=== PATIENT | female | born 1930 | race Caucasian/White ===

== ENCOUNTER 2017-10-30 15:30 | Observation (INO) ==
[2017-10-30] MEDS ORDERED: IOPAMIDOL 100 ML BOTTLE IV ONE (15:31)
[2017-10-30] MEDS ORDERED: LACTATED RINGERS 1,000 ML IV ONE ×2 (15:49→19:01)
--- NOTE | 2017-10-30 15:49 | Emergency Department Note ---
General Adult HPI - General Chief complaint: Dizziness Stated complaint: dizziness Time Seen by Provider: 10/30/17 15:45 Source: patient Mode of arrival: ambulatory Limitations: no limitations - History of Present Illness HPI Narrative: This patient has felt a little lightheaded today with slight vertigo at times. Said she almost collapsed getting into the car. Describes little weakness in her legs. She has had a slight cough. Denies nausea vomiting no chest pain abdominal pain. No focal neurologic weakness numbness or tingling. No visual changes no speech changes. No headache. - Related Data Home Medications Medication Instructions Recorded Confirmed Losartan [Cozaar] 12.5 mg PO BID 10/06/15 03/06/17 Previous Rx's Medication Instructions Recorded Rivaroxaban [Xarelto] 15 mg PO DAILY tablet 03/02/16 Allergies Allergy/AdvReac Type Severity Reaction Status Date / Time lisinopril Allergy Intermediate Drowsy Verified 03/06/17 11:55 loratadine Allergy Unknown Unknown Verified 03/06/17 11:55 metoprolol Allergy Unknown Unknown Verified 03/06/17 11:55 Nortriptyline Allergy Unknown Unknown Verified 03/06/17 11:55 pentoxifylline Allergy Unknown Unknown Verified 03/06/17 11:55 aspartame AdvReac Intermediate Irritable Verified 03/06/17 11:55 [From Nutrasweet Aspartame] iodine AdvReac Intermediate Blister Verified 03/06/17 11:55 latex AdvReac Intermediate Unknown Verified 03/06/17 11:55 rhubarb AdvReac Intermediate Hives Verified 03/06/17 11:55 [place] AdvReac Intermediate Hives Verified 03/06/17 11:55 venom-honey bee AdvReac Intermediate Swelling Verified 03/06/17 11:55 adhesive tape AdvReac Mild Blister Verified 03/06/17 11:55 novacaine Allergy Mild Unknown Uncoded 02/28/16 02:26 Review of Systems All systems ED: reviewed and negative except as stated. Past Medical History - Past Medical History PMFSH Narrative: Medical History Muscle spasm of back (Acute) Tenderness of left calf (Acute) Lumbar paraspinal muscle spasm (Acute) Bilateral sacroiliitis (Acute) Arrhythmia (Acute) Sinus bradycardia-tachycardia syndrome (Acute) Cellulitis (Acute) Knee sprain (Acute) Wrist sprain (Acute) Weakness (Acute) Urinary tract infection (Ruled-out) Medical history: Reports: DVT (LLE), hypertension. 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: non-contributory Surgical history ED: Reports: appendectomy, hip replacement, orthopedic, other ( Kyphoplasty T11, knee, foot), other (tonsillectomy) - Social History smoking status: Never smoker Alcohol use: Reports: None Drug use: Reports: none Physical Exam Limitations: no limitations General appearance: alert Head: atraumatic Eye: Present: normal appearance ENT: mucous membranes dry Neck: Present: normal inspection Chest: Present: normal inspection Respiratory: Present: normal lung sounds bilaterally Cardiovascular: Present: regular rate, normal rhythm, normal heart sounds Abdominal: Present: soft. Absent: distention, tenderness Neurological: Present: alert Psychiatric: Present: normal affect, normal mood Skin: Present: warm, dry, intact Course Vital Signs Pulse Rate 65 10/30/17 16:22 Respiratory Rate 16 10/30/17 16:22 Blood Pressure 146/79 10/30/17 16:22 Pulse Oximetry (%) 99 10/30/17 16:22 Pulse Rate 74 10/30/17 22:21 Respiratory Rate 19 10/30/17 22:21 Blood Pressure 133/79 10/30/17 22:16 Pulse Oximetry (%) 94 10/30/17 22:21 Medical Decision Making - [facility] Narrative Medical decision making narrative: Lab work was unremarkable and CTA of head and neck was negative. She will be admitted to the hospital for vertigo and instability. - Lab Data Lab results reviewed: Yes I reviewed the patient's lab results. Result diagrams: 10/30/17 15:45 10/30/17 15:45 Lab Results 10/30/17 10/30/17 10/30/17 Range/Units 15:42 15:45 15:45 WBC 4.7 (4.5-11.0) K/mcL RBC 3.92 L (4.00-5.20) M/mcL Hgb 11.5 L (12.0-15.0) g/dL Hct 34.0 L (36.0-48.0) % MCV 86.7 (80.0-100.0) fL MCH 29.3 (26.0-34.0) pg MCHC 33.9 (31.0-36.0) g/dL RDW 14.8 H (11.5-14.5) % Plt Count 216 (140-440) K/mcL MPV 9.0 (7.4-10.4) fL Gran % 45.7 (38.0-78.0) % Lymph % (Auto) 44.3 (15.5-49.0) % [place] % (Auto) 5.9 (1.0-12.0) % Eos % (Auto) 3.7 (0.0-7.0) % Baso % (Auto) 0.4 (0.0-2.0) % Gran # 2.2 (1.8-8.0) K/mcL Lymph # (Auto) 2.1 (1.5-4.8) K/mcL [place] # (Auto) 0.3 (0.1-0.9) K/mcL Eos # (Auto) 0.2 (0.0-0.7) K/mcL Baso # (Auto) 0 (0.0-0.3) K/mcL Sodium 137 (133-145) mmol/L Potassium 4.4 (3.3-5.1) mmol/L Chloride 99 (96-108) mmol/L Carbon Dioxide 22 (22-30) mmol/L Anion Gap 16.0 (8-16) BUN 14 (8-23) mg/dl Creatinine 1.2 H (0.6-1.1) mg/dl GFR Calculation 41 Glucose 93 (70-105) mg/dL Calcium 9.1 (8.6-10.4) mg/dl Total Bilirubin 0.3 (0.0-1.0) mg/dL AST 26 (0-37) U/l ALT 13 (0-40) U/l Alkaline Phosphatase 54 (39-117) U/L Troponin T < 0.01 (0-0.03) ng/ml Total Protein 6.6 (5.9-8.4) gm/dL Albumin 4.5 (3.2-5.2) gm/dL Globulin 2.1 L (2.2-3.7) gm/dL Albumin/Globulin Ratio 2.1 (1.0-2.3) Urine Color Urine Appearance Urine pH (5.0-9.0) Ur Specific [place] (1.000-1.035) Urine Protein (NEG) mg/dL Urine Glucose (UA) (NEG) mg/dL Urine Ketones (NEG) mg/dL Urine Occult Blood (<0.03) mg/dL Urine Nitrate (NEG) Urine Bilirubin (NEG) mg/dL Urine Urobilinogen (NEG) mg/dL Ur Leukocyte Esterase (NEG) /uL Ur Culture Indicated? 10/30/17 Range/Units 18:09 WBC (4.5-11.0) K/mcL RBC (4.00-5.20) M/mcL Hgb (12.0-15.0) g/dL Hct (36.0-48.0) % MCV (80.0-100.0) fL MCH (26.0-34.0) pg MCHC (31.0-36.0) g/dL RDW (11.5-14.5) % Plt Count (140-440) K/mcL MPV (7.4-10.4) fL Gran % (38.0-78.0) % Lymph % (Auto) (15.5-49.0) % [place] % (Auto) (1.0-12.0) % Eos % (Auto) (0.0-7.0) % Baso % (Auto) (0.0-2.0) % Gran # (1.8-8.0) K/mcL Lymph # (Auto) (1.5-4.8) K/mcL [place] # (Auto) (0.1-0.9) K/mcL Eos # (Auto) (0.0-0.7) K/mcL Baso # (Auto) (0.0-0.3) K/mcL Sodium (133-145) mmol/L Potassium (3.3-5.1) mmol/L Chloride (96-108) mmol/L Carbon Dioxide (22-30) mmol/L Anion Gap (8-16) BUN (8-23) mg/dl Creatinine (0.6-1.1) mg/dl GFR Calculation Glucose (70-105) mg/dL Calcium (8.6-10.4) mg/dl Total Bilirubin (0.0-1.0) mg/dL AST (0-37) U/l ALT (0-40) U/l Alkaline Phosphatase (39-117) U/L Troponin T (0-0.03) ng/ml Total Protein (5.9-8.4) gm/dL Albumin (3.2-5.2) gm/dL Globulin (2.2-3.7) gm/dL Albumin/Globulin Ratio (1.0-2.3) Urine Color Straw Urine Appearance Clear Urine pH 8.0 (5.0-9.0) Ur Specific [place] 1.005 (1.000-1.035) Urine Protein Neg (NEG) mg/dL Urine Glucose (UA) Negative (NEG) mg/dL Urine Ketones Neg (NEG) mg/dL Urine Occult Blood Neg (<0.03) mg/dL Urine Nitrate Neg (NEG) Urine Bilirubin Neg (NEG) mg/dL Urine Urobilinogen Neg (NEG) mg/dL Ur Leukocyte Esterase Neg (NEG) /uL Ur Culture Indicated? No - Radiology Data Radiology results reviewed: Yes I reviewed the patient's radiology results. Disposition Pt seen by COAL PIPELINE OPERATOR/PA only: No Clinical Impression: Acute vestibular neuronitis Disposition: Xfer As Outpt/Obs ([facility]) Condition: Fair Referrals: Diego Escobedo DO [Primary Care Provider] - Time of Disposition: 22:28
[2017-10-30 16:22] LABS: Basophils # (Auto) 0 K/mcL (0.0-0.3); Basophils % (Auto) 0.4 % (0.0-2.0); Eosinophils # (Auto) 0.2 K/mcL (0.0-0.7); Eosinophils % (Auto) 3.7 % (0.0-7.0); Granulocytes % (Auto) 45.7 % (38.0-78.0); Lymphocytes # (Auto) 2.1 K/mcL (1.5-4.8); Lymphocytes % (Auto) 44.3 % (15.5-49.0); Mean Cell Volume 86.7 fL (80.0-100.0); Mean Corpuscular HGB Conc 33.9 g/dL (31.0-36.0); Mean Corpuscular Hemoglobin 29.3 pg (26.0-34.0); Monocytes # (Auto) 0.3 K/mcL (0.1-0.9); Monocytes % (Auto) 5.9 % (1.0-12.0); Platelet Count 216 K/mcL (140-440); RBC 3.92 M/mcL (4.00-5.20); Red Cell Distribution Width 14.8 % (11.5-14.5)
[2017-10-30 16:37] LABS: ALT/SGPT 13 U/l (0-40); Albumin 4.5 gm/dL (3.2-5.2); Albumin/Globulin Ratio 2.1 (1.0-2.3); Alkaline Phosphatase 54 U/L (39-117); Blood Urea Nitrogen 14 mg/dl (8-23)
[2017-10-30 18:57] LABS: Appearance,Urine CLEAR; Bilirubin,Urine NEG (NEG); Color,Urine STRAW; Glucose,Urine (UA) NEGATIVE (NEG); Leukocyte Esterase,Urine NEG /uL (NEG); Protein,Urine NEG (NEG); Specific Gravity,Urine 1.005 (1.000-1.035); Urine Blood NEG mg/dL (<0.03); Urobilinogen,Urine NEG (NEG)
[2017-10-30] MEDS ORDERED: MECLIZINE 25 MG TABLET PO ONE (19:01)
--- NOTE | 2017-10-31 00:03 | Internal Med History&Physical ---
Medical - H&P: HPI Patient information: Note initiated : 10/30/17 at 11:56 pm Service Date, if different from initiated Date: [] Patient: Noreen Obando 86 y/o F admitted on for dizziness. Chief Complaint: [] History of present illness: Ms. Obando is a 86 year old Female with h/o pacemaker, presents to the ER with complaints of dizziness for the last few days She notes that over the last few days, she has been having spells of dizziness, she would be doing something, like taking out the thrash, or just working in the house, when she would feel dizzy, weak, and then likely as if the room is twirling around her. This sensation would last for a while and then it would pass away, she noted that her eyes would be black( vision turning black during this time). She denies any diplopia, headaches, changes in vision, scotoma, no hearing loss (acute), no fullness in ears, no tinnitus, no palpitations around these spells, she does admit that she is weak during these episodes and feels as if her legs would give away, she usually sits in a chair and waits for the sensation to pass away. The dizzy spells have been progressively getting worse, and today she had a bad one therefore came to the ER for further evaluation. In the ER she was noted to be afebrile, exam was non focal, CT Head, CTA neck and CTA head was negative, EKG was paced rhythm. Chest X ray was not done initially, and patient was presented for vertigo. Chest x ray done later showed oswald intersitial, infiltrates, likely CHF Patient does admit to having cough which has been getting worse over last month or so, no sputum production, no fever no chills, no sick contacts, no GI or symptoms, no skin or joint complaints, lesia any acute anxiety or depression. She will be admitted to the hospital for further management. All systems: reviewed and no additional remarkable complaints except as stated ( as per HPI) Medical - H&P: PMH Medical history: Medical History Muscle spasm of back (Acute) Tenderness of left calf (Acute) Lumbar paraspinal muscle spasm (Acute) Bilateral sacroiliitis (Acute) Arrhythmia (Acute) Sinus bradycardia-tachycardia syndrome (Acute) Cellulitis (Acute) Knee sprain (Acute) Wrist sprain (Acute) Weakness (Acute) Urinary tract infection (Ruled-out) Family history: reviewed and not pertinent Medical - H&P: Meds Home Medications Medication Instructions Recorded Confirmed Type Losartan [Cozaar] 12.5 mg PO BID 10/06/15 03/06/17 History Rivaroxaban [Xarelto] 15 mg PO DAILY tablet 03/02/16 03/06/17 Rx Allergies Allergy/AdvReac Type Severity Reaction Status Date / Time lisinopril Allergy Intermediate Drowsy Verified 03/06/17 11:55 loratadine Allergy Unknown Unknown Verified 03/06/17 11:55 metoprolol Allergy Unknown Unknown Verified 03/06/17 11:55 Nortriptyline Allergy Unknown Unknown Verified 03/06/17 11:55 pentoxifylline Allergy Unknown Unknown Verified 03/06/17 11:55 aspartame AdvReac Intermediate Irritable Verified 03/06/17 11:55 [From Nutrasweet Aspartame] iodine AdvReac Intermediate Blister Verified 03/06/17 11:55 latex AdvReac Intermediate Unknown Verified 03/06/17 11:55 rhubarb AdvReac Intermediate Hives Verified 03/06/17 11:55 [place] AdvReac Intermediate Hives Verified 03/06/17 11:55 venom-honey bee AdvReac Intermediate Swelling Verified 03/06/17 11:55 adhesive tape AdvReac Mild Blister Verified 03/06/17 11:55 novacaine Allergy Mild Unknown Uncoded 02/28/16 02:26 Medical - H&P: Exam - Constitutional Vitals: Pulse Resp BP Pulse Ox 74 19 133/79 94 10/30/17 22:21 10/30/17 22:21 10/30/17 22:16 10/30/17 22:21 Exam: GENERAL: The patient is a well-developed, well-nourished in no apparent distress. Is alert and oriented x3. VITAL SIGNS: Reviewed and as noted elsewhere. HEENT: Head is normocephalic and atraumatic. Extraocular muscles are intact. Pupils are equal, round, and reactive to light. Nares appeared normal. Mouth appears any without lesions. Mucous membranes are moist. NECK: Normal to inspection, Supple, No lymphadenopathy or thyromegaly. LUNGS: Air entry equal on both sides, no wheezing, oswald insipiratory crackles present lower 1/3 both lungs HEART: Regular rate and rhythm normal, S1 and S2 heard, no Gallop, S3 or Rub Noted, No Gross murmur heard. ABDOMEN: Soft, nontender, and nondistended. Positive bowel sounds. No hepatosplenomegaly was noted. EXTREMITIES: No cyanosis, clubbing, rash, lesions, edema + present NEUROLOGIC: Cranial nerves II through XII are grossly intact. Motor and Sensory System Grossly Intact, no cerebellar signs noted. no nystagmus, PSYCHIATRIC: Normal affect, Normal Mood. Appropriate Behavior. SKIN: No ulceration or wounds noted, No jaundice, No rash noted. Medical - H&P: Reslt - Labs CBC & Chem 7: 10/30/17 15:45 10/30/17 15:45 Labs: Short CBC 10/30/17 Range/Units 15:45 WBC 4.7 (4.5-11.0) K/mcL Hgb 11.5 L (12.0-15.0) g/dL Hct 34.0 L (36.0-48.0) % Plt Count 216 (140-440) K/mcL BMP 10/30/17 15:45 Sodium 137 Potassium 4.4 Chloride 99 Carbon Dioxide 22 BUN 14 Creatinine 1.2 H Glucose 93 Calcium 9.1 Cardiac Enzymes 10/30/17 Range/Units 15:42 Troponin T < 0.01 (0-0.03) ng/ml Liver Function 10/30/17 Range/Units 15:45 Total Bilirubin 0.3 (0.0-1.0) mg/dL AST 26 (0-37) U/l ALT 13 (0-40) U/l Alkaline Phosphatase 54 (39-117) U/L Albumin 4.5 (3.2-5.2) gm/dL Urine 10/30/17 Range/Units 18:09 Urine Color Straw Urine Appearance Clear Urine pH 8.0 (5.0-9.0) Ur Specific [place] 1.005 (1.000-1.035) Urine Protein Neg (NEG) mg/dL Urine Glucose (UA) Negative (NEG) mg/dL Medical - H&P: A/P - Narrative A/P Narrative: A/P Dizziness/ Vertigo: Etiology? patient history and labs are not clearly indicating any particular pathology, most of the time patient spells are related to change in posture, ortho static in ER were negative, but did provoke a dizzy reponse. The patient denies any specific position which would trigger an episode, and feels dizzy when her head is moved in either direction. Imaging studies neg, MRI not done/ due to pacemaker status. plan to start on meclizine scheduled for now. She has nausea only today, but no vomiting. prn zofran. 0.5mg Ativan tonight to help her sleep well. Pt prob list does have h/o BPPV listed, for some reason patient noted this has not happened to her before. Congestive Heart failuire: CXR Suggestive of same, patient had received 2 L fluid in the ER, oxygen sat normal, not sure if fluid in the ER is responsible for CXR findings or if patient already had CHF, This may also explain the transient dizziness, darren if she is having spells of arrhythmia, monitor on tele , IV lasix for now, place aragon, get echo Cough: Could be bronchitis/ pna, azithromycin for now, await procalcitonin, if neg will stop antibiotics, Chr Anticoagulation: pt on rivaroxaban, etiology? cardiac arrhythmia? will need to get old records HTN bp stable, on losartan, resume once verified, DVT on rivaroxaban Diet cardiac Full code. POA is the neighbor, ok with daughter being told about her illness, but their opinion is not to be taken in care plan or management decisions. Social History - Tobacco smoking status: Never smoker
[2017-10-31] MEDS ORDERED: AZITHROMYCIN 500 MG in DEXTROSE 5% IN WATER 250 ML IV SCH (00:20)
[2017-10-31] MEDS ORDERED: ACETAMINOPHEN 325 MG TABLET PO PRN (00:20)
[2017-10-31] MEDS ORDERED: ONDANSETRON 4 MG/2 ML VIAL IV PRN (00:20)
[2017-10-31] MEDS ORDERED: FUROSEMIDE 20 MG/2 ML VIAL IV ONE ×2 (00:47→10:23)
[2017-10-31] MEDS ORDERED: LORazepam 2 MG/ML VIAL ONE (00:48)
[2017-10-31] MEDS: LORazepam 2 MG/ML VIAL IV ONE ×2 (00:53→01:10)
[2017-10-31] MEDS: FUROSEMIDE 20 MG/2 ML VIAL IV ONE ×2 (00:54→01:11)
[2017-10-31 05:26] LABS: Basophils # (Auto) 0 K/mcL (0.0-0.3); Basophils % (Auto) 0.6 % (0.0-2.0); Eosinophils # (Auto) 0.1 K/mcL (0.0-0.7); Eosinophils % (Auto) 2.4 % (0.0-7.0); Granulocytes % (Auto) 55.7 % (38.0-78.0); Lymphocytes # (Auto) 1.8 K/mcL (1.5-4.8); Lymphocytes % (Auto) 34.4 % (15.5-49.0); Mean Cell Volume 86.3 fL (80.0-100.0); Mean Corpuscular Hemoglobin 29.3 pg (26.0-34.0); Monocytes # (Auto) 0.4 K/mcL (0.1-0.9); Monocytes % (Auto) 6.9 % (1.0-12.0); Platelet Count 209 K/mcL (140-440); Red Cell Distribution Width 14.7 % (11.5-14.5)
[2017-10-31] MEDS: 0.9 % SODIUM CHLORIDE 10 ML SYRINGE IV SCH ×3 (05:31→22:03)
[2017-10-31 07:05] LABS: ALT/SGPT 12 U/l (0-40); Albumin 4.1 gm/dL (3.2-5.2); Albumin/Globulin Ratio 2.1 (1.0-2.3); Alkaline Phosphatase 53 U/L (39-117); Bilirubin,Direct < 0.2 mg/dL (0.0-0.3); Blood Urea Nitrogen 12 mg/dl (8-23); Gamma Glutamyl Transpeptidase 8 U/L (5-36); Uric Acid 5.3 mg/dL (2.5-8.0)
--- NOTE | 2017-10-31 07:47 | Cat Scan Report ---
History: New onset dizziness Findings: The brain was imaged without contrast at 2.5 mm intervals.. There is residual contrast intracranially following the preceding CT angiogram of the head and neck. There is no evidence for mass hemorrhage or infarct. Age-related degenerative changes are present with mild generalized cerebral atrophy. There are also patchy areas of decreased attenuation in the white matter, predominantly in the frontal and parietal lobes. No abnormal extra-axial fluid collection is present. The ventricles are normal in size. There is no abnormal delayed enhancement in the brain parenchyma. Calcified plaques are present in the cavernous portions of both internal carotids. The mastoid air cells are clear. No gross abnormality is seen in the middle or inner ear structures. Impression: Normal age-related degenerative changes Interpreted and Authenticated by: Carlos Louis 10/31/17
--- NOTE | 2017-10-31 07:49 | XRay Report ---
HISTORY: Reason for Exam:weakness and dizziness FINDINGS: The heart is borderline enlarged. There is a generalized haziness in the lung parenchyma bilaterally, partially obscuring the pulmonary vessels. Multiple curly B lines are seen in the periphery of the right lower lobe. A dual-chamber pacemaker is well-positioned. No pleural effusion is present and no adenopathy is detected. There is a tortuous brachiocephalic vessel paralleling the right side of the trachea. The pulmonary vascular congestion is a new finding since 02/27/16. IMPRESSION: Congestive heart failure Interpreted and Authenticated by: Carlos Louis 10/31/17
--- NOTE | 2017-10-31 08:04 | Cat Scan Report ---
History: New onset dizziness Technique: Nonionic contrast was injected intravenously. Arterial phase images were acquired from the aortic arch to the top of the head. Sagittal and coronal reformatted images were created of the head and neck separately. 3-D volume rendered images were obtained of the carotid arteries bilaterally. Findings: There is thickening of the interlobular septa in both upper lobes. There are few nonspecific lymph nodes in the mediastinum. Largest is in the pretracheal retrocaval space and measures 1.0 x 2.0 cm. There is a dual-chamber pacemaker with the power pack in left pectoral region. There is advanced disc degeneration and arthritis throughout the neck. There is spinal canal stenosis and stenosis of neural foramina at C2-3 C3-4 and C4-5. There is a well-circumscribed enhancing nodule centrally in the superficial lobe of the left parotid. The nodule measures 8 x 10 mm. The aortic arch is normal in caliber without evidence of an aneurysm or dissection. Great vessels arising from the aorta are normal. Mild atherosclerotic disease is present in the carotid bifurcation bilaterally. This causing approximate 40% stenosis at the origin of the right internal carotid. There is no stenosis of left internal carotid. Both internal carotids are tortuous. There is no dissection or aneurysm of the carotid arteries. The vertebral arteries are normal in caliber and there is symmetric. Intracranially the carotids and vertebral arteries are normal in caliber without significant stenosis and there is no vascular occlusion. There are nonstenotic plaques in the cavernous portions of both internal carotids. The right posterior communicating artery is absent. The left posterior communicating and anterior communicating arteries are normal. The [place] of [place] is normal. There is no intracranial aneurysm or vascular abnormality. No abnormal enhancing lesion is present intracranially. Impression: Normal arterial circulation in the head neck for an 86-year-old, without evidence of vascular occlusion or hemodynamically significant stenosis. 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 This has benign features and is more likely a benign adenoma or intraparotid lymph node rather than a malignancy. Interpreted and Authenticated by: Carlos Louis 10/31/17
[2017-10-31] MEDS: RIVAROXABAN 15 MG TABLET PO SCH (08:39)
[2017-10-31] MEDS: MECLIZINE 25 MG TABLET PO SCH ×3 (08:39→20:40)
[2017-10-31] MEDS ORDERED: RIVAROXABAN 15 MG TABLET PO SCH (09:00)
--- NOTE | 2017-10-31 10:16 | Internal Med Progress Note ---
Medical - PN: Subj Patient information: Note initiated : 10/31/17 at 10:13 am Service Date, if different from initiated Date: [] Patient: Noreen Obando 86 y/o F admitted on 10/31/17 for dizziness. Chief Complaint: [] Interval history: Ms. Obando is a 86 year old Female with h/o pacemaker, presents to the ER with complaints of dizziness for the last few days She notes that over the last few days, she has been having spells of dizziness, she would be doing something, like taking out the thrash, or just working in the house, when she would feel dizzy, weak, and then likely as if the room is twirling around her. This sensation would last for a while and then it would pass away, she noted that her eyes would be black( vision turning black during this time). She denies any diplopia, headaches, changes in vision, scotoma, no hearing loss (acute), no fullness in ears, no tinnitus, no palpitations around these spells, she does admit that she is weak during these episodes and feels as if her legs would give away, she usually sits in a chair and waits for the sensation to pass away. The dizzy spells have been progressively getting worse, and today she had a bad one therefore came to the ER for further evaluation. In the ER she was noted to be afebrile, exam was non focal, CT Head, CTA neck and CTA head was negative, EKG was paced rhythm. Chest X ray was not done initially, and patient was presented for vertigo. Chest x ray done later showed oswald intersitial, infiltrates, likely CHF Patient does admit to having cough which has been getting worse over last month or so, no sputum production, no fever no chills, no sick contacts, no GI or symptoms, no skin or joint complaints, lesia any acute anxiety or depression. She will be admitted to the hospital for further management. october 31 patient seen and examined, doing well, dizziness somewhat better. Still feels dizzy on ambulation. Working with physical therapy. Able to tolerate by mouth diet well. Denies any chest pain no shortness of breath or headache no changes in vision. 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 She has PTSD, colon polyp. Upon surgical history done reviewed, none of them would account for patient's present status The patient does have a history of Mnire's disease which is associated with dizziness, however the patient does not have any decreased hearing, nor does the patient reported any fullness of year or tinnitus at this point in time. Pertinent ROS: Denies headache, present dizziness Denies chest pain, palpitations Denies cough or shortness of breath Denies abdominal pain, nausea or vomiting. - Constitutional Vitals: Vital Signs Temp Pulse Resp BP Pulse Ox 98.7 F 79 16 131/65 96 10/31/17 08:00 10/31/17 08:00 10/31/17 08:00 10/31/17 08:00 10/31/17 08:00 Period Temp Pulse Resp BP Sys/Stone Pulse Ox Last 24 Hr 97.4 F-98.7 F 48-80 12-20 131-151/65-87 88-100 Intake and Output 10/30/17 10/31/17 10/31/17 21:59 05:59 13:59 Intake Total 1999 250 / 250 Output Total 2650 / 2650 425 / 425 Balance 1999 -2400 / -2400 -425 / -425 Weight 135 lb 140 lb Intake & Output: Intake & Output 10/30/17 10/31/17 10/31/17 21:59 05:59 13:59 Intake Total 1999 250 / 250 Output Total 2650 / 2650 425 / 425 Balance 1999 -2400 / -2400 -425 / -425 Weight 135 lb 140 lb Intake: IV 1999 250 / 250 Zithromax 500 mg In Dextrose 5% 250 / 250 in Water 250 ml @ 250 mls/hr IV Q24H [facility] Rx#:[id number] Lactated Ringers 1,000 ml @ 1999 Wide Open IV BOLUS ONE Rx#: [id number] Output: Void Amount 2650 / 2650 425 / 425 Other: # Voids 1 Exam: Constitutional; Afebrile, cooperative, alert, not in distress. Eyes- No icterus, , No periorbital swelling Ears- Ext ear normal, hearing normal to conversation. Neck- Midline trachea, supple Respiratory system: Air Entry equal on both sides, No crackles or wheezing, no rhonchi. CVS- Rate rhythm regular, S1,S2 heard, no gallop, no rub. 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 Medical - PN: Obj Da - Labs CBC & Chem 7: 10/31/17 04:00 10/31/17 04:00 Labs: Abnormal Lab Results 10/31/17 10/31/17 10/30/17 04:00 04:00 23:58 RBC 3.80 L Hgb 11.1 L Hct 32.8 L RDW 14.7 H Creatinine 1.2 H Lactate Dehydrogenase 278 H NT-Pro-B Natriuret Pep 1149.0 H Globulin 2.0 L 10/30/17 10/30/17 15:45 15:45 RBC 3.92 L Hgb 11.5 L Hct 34.0 L RDW 14.8 H Creatinine 1.2 H Lactate Dehydrogenase NT-Pro-B Natriuret Pep Globulin 2.1 L Meds: Medications Acetaminophen (Tylenol) 650 mg PO Q6HP PRN PRN Reason: PAIN/FEVER > 101 Meclizine HCl (Antivert) 12.5 mg PO TID [facility] Last Admin: 10/31/17 08:39 Dose: 12.5 mg Ondansetron HCl (Zofran) 4 mg IV Q4HP PRN PRN Reason: Nausea And Vomiting Rivaroxaban (Xarelto) 15 mg PO DAILY [facility] Last Admin: 10/31/17 08:39 Dose: 15 mg Sodium Chloride (Saline Flush) 10 ml IV Q8 [facility] Last Admin: 10/31/17 05:31 Dose: 10 ml Medical - PN: A/P - Time Spent With Patient Total time spent is greater than 50% in coordination of care (as documented) at patient's floor/unit and/or counseling patient: - Narrative A/P Narrative: A/P Dizziness/ Vertigo: Pt does have h/o meneirs disease, no Intracranial pathology noted, continue with anti nausea and anti vertin for now, Physical therapy twice daily Congestive Heart failuire: good diruesis overnight give another dose of lasix today, repeat CXR in AM, echo ordered. Cough: Could be bronchitis/ pna, azithromycin for now, await procalcitonin, if neg will stop antibiotics, Chr Anticoagulation: pt on rivaroxaban, etiology is dvt x 2 continue same parotid tumor/ benign chr HTN bp stable, on losartan, resume today DVT on rivaroxaban Diet cardiac Full code. POA is the neighbor, ok with daughter being told about her illness, but their opinion is not to be taken in care plan or management decisions.
[2017-10-31] MEDS: LOSARTAN 25 MG TABLET PO SCH ×2 (10:35→20:40)
[2017-11-01 05:13] LABS: Basophils # (Auto) 0 K/mcL (0.0-0.3); Basophils % (Auto) 0.6 % (0.0-2.0); Eosinophils # (Auto) 0.2 K/mcL (0.0-0.7); Eosinophils % (Auto) 5.5 % (0.0-7.0); Granulocytes % (Auto) 49.3 % (38.0-78.0); Lymphocytes # (Auto) 1.6 K/mcL (1.5-4.8); Lymphocytes % (Auto) 35.9 % (15.5-49.0); Mean Cell Volume 86.2 fL (80.0-100.0); Mean Corpuscular HGB Conc 33.7 g/dL (31.0-36.0); Monocytes # (Auto) 0.4 K/mcL (0.1-0.9); Monocytes % (Auto) 8.7 % (1.0-12.0); Platelet Count 204 K/mcL (140-440); RBC 3.84 M/mcL (4.00-5.20); Red Cell Distribution Width 14.5 % (11.5-14.5)
[2017-11-01 05:20] LABS: ALT/SGPT 10 U/l (0-40); Albumin 3.9 gm/dL (3.2-5.2); Albumin/Globulin Ratio 2.1 (1.0-2.3); Alkaline Phosphatase 49 U/L (39-117); Bilirubin,Direct < 0.2 mg/dL (0.0-0.3); Blood Urea Nitrogen 21 mg/dl (8-23); Gamma Glutamyl Transpeptidase 8 U/L (5-36); Uric Acid 6.3 mg/dL (2.5-8.0)
[2017-11-01] MEDS: 0.9 % SODIUM CHLORIDE 10 ML SYRINGE IV SCH (05:23)
--- NOTE | 2017-11-01 08:09 | XRay Report ---
HISTORY: Reason for Exam:chf , dizziness and weakness FINDINGS: A subtle streaky opacity is present laterally in the right upper lobe. This could be discoid atelectasis or less likely small amount of residual pulmonary edema. No abnormality was present in this location on 02/27/16. The congestive heart failure seen on 10/30/17 has otherwise resolved. The heart is smaller today and is now normal in size. No pleural effusion is present. The pacemaker remains well-positioned. IMPRESSION: Resolved congestive heart failure Nonspecific streaky opacity in the right upper lobe which is more likely discoid atelectasis than residual isolated congested pulmonary vessels. Interpreted and Authenticated by: Carlos Louis 11/01/17
[2017-11-01] MEDS: LOSARTAN 25 MG TABLET PO SCH (08:58)
[2017-11-01] MEDS: MECLIZINE 25 MG TABLET PO SCH (08:58)
[2017-11-01] MEDS: RIVAROXABAN 15 MG TABLET PO SCH (09:01)
--- NOTE | 2017-11-01 10:47 | Discharge Summary ---
Medical - DS: Prov Patient information: Note initiated : 11/01/17 at 10:45 am Service Date, if different from initiated Date: [] Patient: Noreen Obando 86 y/o F admitted on 10/31/17 for dizziness. Chief Complaint: [] Date of admission: 10/31/17 00:06 Discharge date: 11/01/17 Primary care physician: Diego Escobedo Admitting clinician: Mike Winslow Consults: 10/30/17 22:13 Consult to Physician [CONS] Stat Comment: Consulting Provider: Mike Winslow Reason For Exam: Physician to Consult Discharging clinician: Mike Winslow Medical - DS: Meds - Discharge Medications Prescriptions: Meclizine [Antivert] 12.5 mg PO TID #21 tab Active and Home Medications: Home Medications Losartan [Cozaar] 12.5 mg PO BID 10/06/15 [History Confirmed 10/31/17 Last Taken Unknown] Rivaroxaban [Xarelto] 15 mg PO DAILY tablet 03/02/16 [Rx Confirmed 10/31/17 Last Taken Unknown] Medical - DS: Hosp Hospital course: Ms. Obando is a 86 year old Female with h/o pacemaker, presents to the ER with complaints of dizziness for the last few days She notes that over the last few days, she has been having spells of dizziness, she would be doing something, like taking out the thrash, or just working in the house, when she would feel dizzy, weak, and then likely as if the room is twirling around her. This sensation would last for a while and then it would pass away, She denies any diplopia, headaches, changes in vision, scotoma, no hearing loss (acute), no fullness in ears, no tinnitus, no palpitations around these spells, she does admit that she is weak during these episodes and feels as if her legs would give away, she usually sits in a chair and waits for the sensation to pass away. The dizzy spells have been progressively getting worse, and today she had a bad one therefore came to the ER for further evaluation. In the ER she was noted to be afebrile, exam was non focal, CT Head, CTA neck and CTA head was negative, EKG was paced rhythm. Chest X ray was not done initially, and patient was presented for vertigo. Chest x ray done later showed chf CHF: Treated with IV lasix and patient reponded to treatment well, echo shows normal lvef, pt likely has some diastolic heart failure, had received 2 L saline bolus in the ER before x ray was taken, I am assuming some part of fluid in the lungs was related to that. Patient only needed 2 doses of 20mg lasix to help with diuresis. Will not prescribe lasix at discharge, give a trial with low salt diet and see how she does, lasix can be added if patient;s symptoms return. Dizziness: CT head, CTA head neg, she had no classical signs for meniers disease , but has history of same, no clear history to suggest any bppv, no h/o viral illness preceding the symptoms to suggest vestibular neuritis, but its likely her symptoms were related to some peripheral component. Unable to clearly quantify during this hospital stay. She was treated with meclizine and physical therapy and she responded well to treatment. She reports 75percent improvement in her symtpmos and can ambulate well with FWW. she will be discharged home, and she plans to live with friends for couple of days till she is back to baseline. Should her symptoms recurs, I would recommend a evaluation by an ENT specialist. The rest of the stay in the hospital was uneventful, no changes made to [facility] home med list. Only meclizine 12.5mg tid x 1 week prescribed. Discharge diagnosis: dizziness, chf, - Time Spent with Patient Total time spent providing and/or coordinating discharge services: Greater than 30 minutes Medical - DS: Exam - Constitutional Vitals: Vital Signs Temp Pulse Resp BP BP Pulse Ox 11/01/17 06:31 97.2 F 16 125/71 100 11/01/17 04:00 98.7 F 73 16 120/61 97 11/01/17 00:00 98.4 F 80 16 121/66 100 10/31/17 20:00 99.4 F H 74 16 124/74 95 10/31/17 15:15 98.5 F 16 135/72 100 10/31/17 12:42 98.6 F 93 H 16 102/64 94 10/31/17 11:17 98.5 F 18 126/77 97 Intake and Output 10/31/17 11/01/17 11/01/17 21:59 05:59 13:59 Intake Total 180 / 180 360 / 360 360 / 360 Output Total 250 / 250 575 / 575 300 / 300 Balance -70 / -70 -215 / -215 60 / 60 Intake: Oral 180 / 180 360 / 360 360 / 360 Output: Void Amount 250 / 250 300 / 300 300 / 300 # of times incontinent of urine 275 / 275 Other: Meal Breakfast Percent of Meal Consumed 100% Feeding Ability Independent # Voids 1 1 1 Weight 132 lb Additional comments: Constitutional; Afebrile, cooperative, alert, not in distress. Eyes- No icterus, , No periorbital swelling Ears- Ext ear normal, hearing normal to conversation. Neck- Midline trachea, supple Respiratory system: Air Entry equal on both sides, No crackles or wheezing, no rhonchi. CVS- Rate rhythm regular, S1,S2 heard, no gallop, no rub. 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 Medical - DS: Data Procedures and tests throughout hospitalization: CTA Neck Impression: Normal arterial circulation in the head neck for an 86-year-old, without evidence of vascular occlusion or hemodynamically significant stenosis. 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 This has benign features and is more likely a benign adenoma or intraparotid lymph node rather than a malignancy. Head CT Impression: Normal age-related degenerative changes XRay Chest IMPRESSION: Congestive heart failure Chest Xray IMPRESSION: Resolved congestive heart failure Nonspecific streaky opacity in the right upper lobe which is more likely discoid atelectasis than residual isolated congested pulmonary vessels. Echo Left ventricle is normal in size, left ventricle has mild hypertrophy, normal left ventricular ejection fraction. Mild aortic regurgitation and mild mitral regurgitation Labs on day of discharge: Labs from last 24 hours 11/01/17 11/01/17 03:30 03:30 WBC 4.3 L RBC 3.84 L Hgb 11.2 L Hct 33.1 L MCV 86.2 MCH 29.0 MCHC 33.7 RDW 14.5 Plt Count 204 MPV 9.3 Gran % 49.3 Lymph % (Auto) 35.9 Winn % (Auto) 8.7 Eos % (Auto) 5.5 Baso % (Auto) 0.6 Gran # 2.1 Lymph # (Auto) 1.6 Winn # (Auto) 0.4 Eos # (Auto) 0.2 Baso # (Auto) 0 Sodium 139 Potassium 4.1 Chloride 100 Carbon Dioxide 26 Anion Gap 13.0 BUN 21 Creatinine 1.3 H GFR Calculation 37 Glucose 75 Uric Acid 6.3 Calcium 8.9 Phosphorus 3.4 Magnesium 2.0 Total Bilirubin 0.3 Direct Bilirubin < 0.2 GGT 8 AST 21 ALT 10 Alkaline Phosphatase 49 Lactate Dehydrogenase 231 Total Protein 5.8 L Albumin 3.9 Globulin 1.9 L Albumin/Globulin Ratio 2.1 Triglycerides 99 Preliminary micro results at discharge 10/31/17 00:34 Blood Culture - Preliminary Blood 10/31/17 00:38 Blood Culture - Preliminary Blood Medical - DS: A/P - Patient/Caregiver Discharge Instructions Activity: increase activity as tolerated Diet: Low Sodium (2gm), Cardiac Additional Instructions: Please follow a low sodium diet Take meclizine 12.5mg three times a day for 1 week, then stop Follow up with PCP in 1 week Please see an ENT specialist if these symptoms recur Go to the ER if chest pain, shortness of breath, fever or any other acute concerning symptom. - Follow up Plan Follow up with: Diego Escobedo DO [Primary Care Provider] - Disposition: Home, Self-Care Prognosis: Fair Rehab Potential: Fair I certify that the patient requires SNF services: No Overall status at discharge: patient is progressing back to baseline
== END 2017-11-01 12:10 | disposition home or self-care (01) ==
LOC: ED 15:30 → ICU 15:30
PROVIDERS: ADMIT Internal Medicine; ATTEND Internal Medicine